=== PATIENT | female | born 1955 | race Caucasian/White ===

== ENCOUNTER → 2017-12-04 | Outpatient (CLI) | payer MEDICARE, MEDICAID ==
[~2017-12-04] MED LIST: ALBU8.5H IH; AMIT-106 PO; BUPR-126 PO; CHOL5POW MC; ELUX100T PO; ESTR-33 PO; IOPAMIDOL 76% 75 ML INFUS BTL 75 ML ONE; LEVO-85 PO; LEVO5TAB28 PO; METR-1 PO; MOMR ENA; MONT10TA PO; NS 0.9% 20 ML SDV 60 ML ONE; PREN-127 PO
[2017-12-04 08:26] LABS: PLATELET COUNT, AUTOMATED 298 K/uL (150-450)
--- NOTE | 2017-12-04 10:55 | RADIOLOGY IMAGING REPORT ---
FACILITY: [facility] - [place] PATIENT NAME: Sirisha Delgado : 1955 MR: [id number] V: [id number] EXAM DATE: ORDERING PHYSICIAN: ROGER MORIN TECHNOLOGIST: Location: [facility] Patient: Sirisha Delgado : 1955 Visit/Account:[id number] Date of Sevice: 12/04/2017 ABDOMEN/PELVIS W/WO CONTRAST HISTORY: History of appendiceal abscess TECHNIQUE: Axial images acquired through the abdomen/pelvis both with and without IV contrast.. Jase nal and sagittal reformatting also performed. Dose Lowering Technique One of the following dose optimization techniques was utilized in the performance of this exam: Autom ated exposure control; adjustment of the mA and/or kV according to the patient's size; or use of an i terative reconstruction technique. Specific details can be referenced in the facility's radiology C T exam operational policy. CONTRAST: 75 mL Isovue-370 COMPARISON: October 20, 2017 FINDINGS: Visualized lung bases: Negative. Hepatobiliary: Postsurgical changes from a cholecystectomy. Several small subcentimeter hypodensiti es in the liver are too small to characterize although remain unchanged Spleen: Negative. Adrenals: Negative. Pancreas: Negative. Kidneys ureters and bladder: Negative. Genitalia: Hysterectomy GI: The patient is status post appendectomy. There is no evidence of bowel wall thickening or bowel obstruction. Vessels/spaces/nodes: The previously noted percutaneous drain in the right lower quadrant has been r emoved. No abnormal collections are identified within the abdomen or pelvis. Bones/soft tissues: No aggressive appearing bone lesions are seen there moderate spondylotic changes L5-S1 and L1-2. Mild generative changes of the hip joints Additional findings: None pertinent. IMPRESSION: Patient status post appendectomy. No abnormal collections are identified within the abdomen or pelvi s Additional chronic findings as described above Report Dictated By: Katie German MD at 12/04/2017 10:42 AM Report E-Signed By: Katie German MD at 12/04/2017 10:50 AM WSN:[id number]
== END ==
LOC: CT 07:06
PROVIDERS: ATTEND Surgery
DX: Z90.89 Acquired absence of other organs (principal); Z90.49 Acquired absence of other specified parts of digestive tract; Z90.710 Acquired absence of both cervix and uterus
CPT/HCPCS: 36415; 74178; 82565; 85025; J7050; Q9967

== ENCOUNTER 2017-12-20 10:23 | Emergency (ER) | payer MEDICARE, MEDICAID ==
[~2017-12-20] VITALS: Ht 180.3 cm; Wt 74.8 kg
[~2017-12-20 10:23] MED LIST changes: -IOPAMIDOL 76% 75 ML INFUS BTL 75 ML ONE; -NS 0.9% 20 ML SDV 60 ML ONE
--- NOTE | 2017-12-20 10:34 | ER Report ---
History and Physical Time Seen By MD: 10:34 HPI/ROS CHIEF COMPLAINT: Abdominal pain HISTORY OF PRESENT ILLNESS: 62-year-old female reports complex abdominal surgical history including abscess longtime antibiotics and washout for ruptured appendicitis by Dr. Shaan ramirez, also history of adhesions removed in 1979 tubal ligation and 80 for a right inguinal hernia repair in lupus total hysterectomy 2009 cholecystectomy in 2009 presents with right lower quadrant pain over the last 3 days worsening last meal was last night last bowel movement was normal for her and was diarrhea without blood or mucus, last CAT scan and lab draw was 2 weeks ago. She follows with Dr. Olvera in clinic.she rates the pain a 5 out of 10 is refusing pain medication. She feels queasy but does not feel like she is actually on to vomit and is refusing nausea medication at this time. REVIEW OF SYSTEMS: Constitutional: No fever, no chills. Eyes: No discharge. ENT: No sore throat. Cardiovascular: No chest pain, no palpitations. Respiratory: No cough, no shortness of breath. Gastrointestinal: Nausea without vomiting Genitourinary: No hematuria. Musculoskeletal: No back pain. Skin: No rashes. Neurological: No headache. Allergies: Coded Allergies: No Known Drug Allergies (Unverified , 12/20/17) Home Meds Reported Medications Montelukast Sodium (SINGULAIR) 10 Mg Tablet, 1 TAB PO HS, TAB 10/09/17 Eluxadoline (Viberzi) 100 Mg Tablet, 1 TAB PO BID 10/09/17 Vits W-Ca,Fe,Fa(<1MG) ( VITAMINS) 1 Each Tablet, 1 EACH PO HS, TAB 10/09/17 Albuterol Sulfate 90 Mcg/Act (PROAIR HFA 90 MCG/ACT) 8.5 Gm Hfa.aer.ad, 1-2 PUFF IH 3-4XD Y for SHORTNESS OF BREATH, INHALER 10/09/17 Mometasone Furoate (NASONEX) 17 Gm Essie, 17 GM ED HS, SPRAY 10/09/17 Estradiol (ESTRADIOL) 1 Mg Tablet, 1 MG PO HS 10/09/17 Cholestyramine (CHOLESTYRAMINE RESIN) 5 Gm Powder, 4 GM MC BID 10/09/17 Levocetirizine (XYZAL) 5 Mg Tab, 5 MG PO DAILY Y for ALLERGY SYMPTOMS, TAB 10/09/17 Bupropion Hcl (WELLBUTRIN SR) 150 Mg Tablet.er, 150 MG PO HS, TAB 10/09/17 Amitriptyline Hcl (AMITRIPTYLINE HCL) 25 Mg Tablet, 25 MG PO QHS, #5 TAB 10/09/17 Discontinued Reported Medications Metronidazole (FLAGYL) 500 Mg Tablet, 500 MG PO TID, #21 TAB 10/21/17 Discontinued Scripts Levofloxacin 500 Mg Tab (LEVAQUIN 500 MG TAB) 500 Mg Tablet, 500 MG PO QDAY, #7 TAB Prov:ROGER OLVERA MD 10/21/17 Hx Smoking: No Hx Alcohol Use: No Constitutional Vital Sign - Last 24 Hours 12/20/17 12/20/17 12/20/17 12/20/17 10:24 10:31 10:53 11:00 Temp 97.8 Pulse 83 84 Resp 16 B/P (MAP) 139/79 139/79 (99) 122/85 (97) Pulse Ox 95 94 O2 Delivery Room Air 12/20/17 12/20/17 12/20/17 12/20/17 11:23 11:30 12:00 12:05 Pulse 78 B/P (MAP) 127/88 (101) 133/82 (99) Pulse Ox 94 95 12/20/17 12/20/17 12/20/17 12/20/17 12:20 12:25 12:30 12:35 Pulse 70 73 67 69 B/P (MAP) 132/86 (101) Pulse Ox 95 96 96 98 Intake and Output 12/20/17 12/20/17 12/21/17 15:00 23:00 07:00 Intake Total 1000 ml Balance 1000 ml Physical Exam General Appearance: The patient is alert, has no immediate need for airway protection and no signs of toxicity. She appears in no acute distress Eyes: Pupils equal and round no pallor or injection. ENT, Mouth: Mucous membranes are moist. Respiratory: There are no retractions, lungs are clear to auscultation. Cardiovascular: Regular rate and rhythm. No murmurs gallops or rubs Gastrointestinal: Abdomen is soft and right lower quadrant is tender without rebound, no masses, bowel sounds low. Neurological: Normal gross exam Skin: Warm and dry, no rashes. Musculoskeletal: Neck is supple non tender. Extremities are nontender, nonswollen and have full range of motion. No edema DIFFERENTIAL DIAGNOSIS: After history and physical exam differential diagnosis was considered for recurrent abscess, adhesions, colitis, enteritis, mesenteric adenitis, appendix likely removed. Prior cholecystectomy hysterectomy and bilateral oophorectomy make these entities unlikely to continue to her specific pathology today. Chronic diarrhea may be related to gluten intolerance lactose intolerance although previous workups per her report were negative she reports she seen a GI specialist on multiple occasions will recommend GI follow-up if no surgical disease is identified today. Medical Decision Making Data Points Result Diagram: 12/20/17 1037 12/20/17 1037 Laboratory Hematology Test 12/20/17 10:37 Red Blood Count 5.03 M/uL (4.17-5.56) Mean Corpuscular Volume 95.8 fL (80.0-96.0) Mean Corpuscular Hemoglobin 31.5 pg (26.0-33.0) Mean Corpuscular Hemoglobin Concent 32.9 g/dL (32.0-36.0) Red Cell Distribution Width 13.6 % (11.5-14.5) Mean Platelet Volume 8.6 fL (7.2-11.1) Neutrophils (%) (Auto) 56.1 % (39.4-72.5) Lymphocytes (%) (Auto) 34.2 % (17.6-49.6) Monocytes (%) (Auto) 4.4 % (4.1-12.4) Eosinophils (%) (Auto) 3.9 % (0.4-6.7) Basophils (%) (Auto) 1.4 % (0.3-1.4) Nucleated RBC Relative Count (auto) 0.1 /100WBC Neutrophils # (Auto) 4.5 K/uL (2.0-7.4) Lymphocytes # (Auto) 2.8 K/uL (1.3-3.6) Monocytes # (Auto) 0.4 K/uL (0.3-1.0) Eosinophils # (Auto) 0.3 K/uL (0.0-0.5) Basophils # (Auto) 0.1 K/uL (0.0-0.1) Nucleated RBC Absolute Count (auto) 0.01 K/uL Urine Color Yellow Urine Clarity Cloudy Urine pH 5.0 pH (4.8-9.5) Urine Specific Johnson 1.009 Urine Protein Negative mg/dL (NEGATIVE) Urine Glucose (UA) Negative mg/dL (NEGATIVE) Urine Ketones Negative mg/dL (NEGATIVE) Urine Blood Negative (NEGATIVE) Urine Nitrite Negative (NEGATIVE) Urine Bilirubin Negative (NEGATIVE) Urine Urobilinogen Negative mg/dL (0.2-1.9) Urine Leukocyte Esterase Large (NEGATIVE) Urine RBC 24 /HPF (0-2/HPF) Urine WBC 22 /HPF (0-5/HPF) Urine Squamous Epithelial Cells Many /LPF (</=FEW) Urine Bacteria Few /HPF (NONE-FEW) Urine Mucus Few /HPF (NONE-FEW) Sodium Level 139 mmol/L (137-145) Potassium Level 4.1 mmol/L (3.5-5.0) Chloride Level 104 mmol/L (98-107) Carbon Dioxide Level 22 mmol/L (22-31) Blood Urea Nitrogen 13 mg/dl (7-18) Creatinine 0.90 mg/dl (0.52-1.04) Glomerular Filtration Rate Calc > 60.0 Random Glucose 88 mg/dl (75-110) Calcium Level 9.2 mg/dl (8.4-10.2) Total Bilirubin 0.4 mg/dl (0.2-1.3) Aspartate Amino Transf (AST/SGOT) 36 U/L (0-35) Alanine Aminotransferase (ALT/SGPT) 53 U/L (0-56) Alkaline Phosphatase 87 U/L (0-126) Total Protein 7.6 gm/dl (6.3-8.2) Albumin 4.2 g/dl (3.5-5.0) Lipase 182 U/L (23-300) Chemistry Test 12/20/17 10:37 White Blood Count 8.1 k/uL (4.5-11.0) Red Blood Count 5.03 M/uL (4.17-5.56) Hemoglobin 15.9 g/dL (12.0-16.0) Hematocrit 48.2 % (34.0-47.0) Mean Corpuscular Volume 95.8 fL (80.0-96.0) Mean Corpuscular Hemoglobin 31.5 pg (26.0-33.0) Mean Corpuscular Hemoglobin Concent 32.9 g/dL (32.0-36.0) Red Cell Distribution Width 13.6 % (11.5-14.5) Platelet Count 355 K/uL (150-450) Mean Platelet Volume 8.6 fL (7.2-11.1) Neutrophils (%) (Auto) 56.1 % (39.4-72.5) Lymphocytes (%) (Auto) 34.2 % (17.6-49.6) Monocytes (%) (Auto) 4.4 % (4.1-12.4) Eosinophils (%) (Auto) 3.9 % (0.4-6.7) Basophils (%) (Auto) 1.4 % (0.3-1.4) Nucleated RBC Relative Count (auto) 0.1 /100WBC Neutrophils # (Auto) 4.5 K/uL (2.0-7.4) Lymphocytes # (Auto) 2.8 K/uL (1.3-3.6) Monocytes # (Auto) 0.4 K/uL (0.3-1.0) Eosinophils # (Auto) 0.3 K/uL (0.0-0.5) Basophils # (Auto) 0.1 K/uL (0.0-0.1) Nucleated RBC Absolute Count (auto) 0.01 K/uL Urine Color Yellow Urine Clarity Cloudy Urine pH 5.0 pH (4.8-9.5) Urine Specific Johnson 1.009 Urine Protein Negative mg/dL (NEGATIVE) Urine Glucose (UA) Negative mg/dL (NEGATIVE) Urine Ketones Negative mg/dL (NEGATIVE) Urine Blood Negative (NEGATIVE) Urine Nitrite Negative (NEGATIVE) Urine Bilirubin Negative (NEGATIVE) Urine Urobilinogen Negative mg/dL (0.2-1.9) Urine Leukocyte Esterase Large (NEGATIVE) Urine RBC 24 /HPF (0-2/HPF) Urine WBC 22 /HPF (0-5/HPF) Urine Squamous Epithelial Cells Many /LPF (</=FEW) Urine Bacteria Few /HPF (NONE-FEW) Urine Mucus Few /HPF (NONE-FEW) Glomerular Filtration Rate Calc > 60.0 Calcium Level 9.2 mg/dl (8.4-10.2) Total Bilirubin 0.4 mg/dl (0.2-1.3) Aspartate Amino Transf (AST/SGOT) 36 U/L (0-35) Alanine Aminotransferase (ALT/SGPT) 53 U/L (0-56) Alkaline Phosphatase 87 U/L (0-126) Total Protein 7.6 gm/dl (6.3-8.2) Albumin 4.2 g/dl (3.5-5.0) Lipase 182 U/L (23-300) Urinalysis Test 12/20/17 10:37 Urine Color Yellow Urine Clarity Cloudy Urine pH 5.0 pH (4.8-9.5) Urine Specific Johnson 1.009 Urine Protein Negative mg/dL (NEGATIVE) Urine Glucose (UA) Negative mg/dL (NEGATIVE) Urine Ketones Negative mg/dL (NEGATIVE) Urine Blood Negative (NEGATIVE) Urine Nitrite Negative (NEGATIVE) Urine Bilirubin Negative (NEGATIVE) Urine Urobilinogen Negative mg/dL (0.2-1.9) Urine Leukocyte Esterase Large (NEGATIVE) Urine RBC 24 /HPF (0-2/HPF) Urine WBC 22 /HPF (0-5/HPF) Urine Squamous Epithelial Cells Many /LPF (</=FEW) Urine Bacteria Few /HPF (NONE-FEW) Urine Mucus Few /HPF (NONE-FEW) ED Course/Re-evaluation ED Course The plan of care was agreed upon prior to orders placed. Re-evaluation Doing fine no concerns or complaints all results were discussed at 12/20/2017 12:52:19 pm all questions answered and understood. Home care follow-up and reasons to return discussed. Patient's disclose she is on Viberzi [Eluxadoline] and will continue for pain. She would appreciate a prescription for Zofran Decision to Disposition Date: Dec 20, 2017 Decision to Disposition Time: 12:54 Depart Departure Latest Vital Signs Vital Signs Date Time Temp Pulse Resp B/P (MAP) Pulse Ox O2 Delivery O2 Flow Rate FiO2 12/20/17 12:35 69 98 12/20/17 12:30 132/86 (101) 12/20/17 10:24 97.8 16 Room Air Impression: Primary Impression: Abdominal pain, right lower quadrant Condition: Improved Disposition: HOME OR SELF-CARE New Scripts Ondansetron (ZOFRAN ODT) 4 Mg Tab.rapdis 4 MG PO Q6H for Nausea for 7 Days, #28 TAB.JAIME Prov: CHIDI ROMERO MD 12/20/17 Patient Instructions: Irritable Bowel Syndrome (ED) CHIDI ROMERO MD Dec 20, 2017 10:34
[2017-12-20] MEDS ORDERED: NS(*) 0.9% 1000 ML BAG 1,000 ML IV ONE (11:16)
[2017-12-20] MEDS ORDERED: DICYCLOMINE HCL 10 MG CAP PO ONE (11:20)
[2017-12-20] MEDS ORDERED: NS 0.9% 20 ML SDV 40 ML ONE (11:25)
[2017-12-20] MEDS ORDERED: IOPAMIDOL 76% 75 ML INFUS BTL 75 ML ONE (11:25)
[2017-12-20 11:32] LABS: PLATELET COUNT, AUTOMATED 355 K/uL (150-450)
--- NOTE | 2017-12-20 12:45 | RADIOLOGY IMAGING REPORT ---
FACILITY: [facility] PATIENT NAME: Sirisha Delgado : 1955 MR: [id number] V: [id number] EXAM DATE: ORDERING PHYSICIAN: CHIDI ROMERO TECHNOLOGIST: Location: [facility] Patient: Sirisha Delgado : 1955 Visit/Account:[id number] Date of Sevice: 12/20/2017 ABDOMEN/PELVIS WITH CONTRAST Additional pertinent History: Right lower quadrant pain TECHNIQUE: Spiral scan was through the abdomen and pelvis during injection of nonionic iodinated in travenous contrast. Contrast: 75 mL of IV Isovue 370. COMPARISON STUDIES: 12/04/2017 One of the following dose optimization techniques was utilized in the performance of this exam: Autom ated exposure control; adjustment of the mA and/or kV according to the patient's size; or use of an i terative reconstruction technique. Specific details can be referenced in the facility's radiology C T exam operational policy.. FINDINGS: Liver / biliary: Hypoattenuated lesions subcentimeter in size within the left lobe of the liver consi stent with cysts. Pancreas: negative Spleen: negative Adrenal glands: negative Kidneys / retroperitoneum: No renal stone or renal obstructive uropathy change. Slightly prominent ri ght extrarenal pelvis. Ureter mildly prominent down to the bladder with no obstructing process seen. Pelvic structures: Status post hysterectomy. Adnexal regions unremarkable. Bowel / peritoneum / mesenteries: No bowel inflammation. No colonic mass lesion. No appendix identifi ed. There are however, no pericolonic stranding or inflammation noted to suggest secondary signs of a ppendicitis. Vessels: negative Musculoskeletal / Body wall: DJD disc degenerative changes at the L5-S1 level. Lymph node assessment: negative Lower chest: negative IMPRESSION: 1. Negative CT scan of the abdomen/pelvis for acute pathology. Status post hysterectomy. Status post cholecystectomy. Report Dictated By: Rom Myers MD at 12/20/2017 12:26 PM Report E-Signed By: Rom Myers MD at 12/20/2017 12:40 PM WSN:[id number]
[2017-12-20] MEDS ORDERED: ONDA4TAB PO (12:55)
[2017-12-20 13:00] VITALS: BP 120/80
== END 2017-12-20 13:03 | disposition home or self-care (01) ==
LOC: ER 10:31
DX: R10.31 Right lower quadrant pain (principal)
CPT/HCPCS: 74177; 81001; 83690; 85025; 96360; 99284; A9270; J7030; J7050; Q9967; 82040; 82247; 82310; 82374; 82435; 82565; 82947; 84075; 84132; 84155; 84295; 84450; 84460; 84520

== ENCOUNTER → 2017-12-31 | Outpatient (REF) | payer MEDICARE, MEDICAID ==
[~2017-12-31] MED LIST changes: +ONDA4TAB PO
== END ==
LOC: ZZSENDIN 17:22 → EDSTATUS 17:23
PROVIDERS: ATTEND Urology
DX: R31.1 Benign essential microscopic hematuria (principal); N39.0 Urinary tract infection, site not specified
CPT/HCPCS: 81001; 87088

== ENCOUNTER 2018-01-13 00:25 | Day surgery (SDC) | payer MEDICARE, MEDICAID ==
--- NOTE | 2017-12-17 16:53 | HISTORY AND PHYSICAL ---
DATE OF ADMISSION: January 13, 2018 CHIEF COMPLAINT Interval appendectomy. HISTORY OF PRESENT ILLNESS This is a 52-year-old female who had a perforated appendix with abscess on October 14, 2017. This was treated with drainage of the abscess. She has subsequently recovered and is now admitted for an interval appendectomy. ALLERGIES She has no known allergies. CURRENT MEDICATIONS 1. Amitriptyline 25 mg at bedtime. 2. Cholestyramine. 3. Estradiol. 4. Mometasone. 5. Montelukast 10 mg at bedtime. 6. vitamins. 7. ProAir. 8. Wellbutrin. 9. Xyzal 5 mg. 10. Viberzi 100 mg twice a day. PAST MEDICAL HISTORY AND OPERATIONS She had bilateral knee scopes, bilateral tubal ligation, cholecystectomy, drainage of appendiceal abscess, lysis of adhesions, neck operation, right inguinal hernia repair, rotator cuff repair, tonsillectomy, and total hysterectomy. PHYSICAL EXAMINATION GENERAL: A 62-year-old female in no acute distress. LUNGS: Clear. HEART: Regular rhythm. ABDOMEN: Soft, nontender. No palpable masses. IMPRESSION History of perforated appendix. PLAN We will do an interval appendectomy. We discussed the procedure, complications , and recovery time. She seems to understand and wishes to proceed. BOB
[~2018-01-13] VITALS: Ht 180.3 cm; Wt 78.5 kg
[~2018-01-13 00:25] MED LIST changes: +NITR-105 PO
[2018-01-13] MEDS ORDERED: LIDOCAINE MPF 1% 5 ML VIAL ONE (07:25)
[2018-01-13] MEDS ORDERED: fentaNYL CITR 100 MCG/2 ML AMP ONE ×3 (07:25→10:24)
[2018-01-13] MEDS ORDERED: ONDANSETRON 4 MG/2 ML VIAL ONE (07:25)
[2018-01-13] MEDS ORDERED: PROPOFOL EMUL(*) 10MG/ML 20 ML 20 ML ONE (07:25)
[2018-01-13] MEDS ORDERED: DEXAMETHASONE SOD 4 MG/ML VIAL ONE (07:25)
[2018-01-13] MEDS ORDERED: FAMOTIDINE(*) 20MG/50ML PREMIX 50 ML IVPB ONE (07:49)
[2018-01-13] MEDS ORDERED: SUGAMMADEX SOD 200 MG/2 ML SDV ONE (08:07)
[2018-01-13 08:18] VITALS: BP 126/82
[2018-01-13] MEDS ORDERED: ROPIVACAINE 0.2% 20 ML VIAL ONE (08:27)
[2018-01-13] MEDS ORDERED: MIDAZOLAM 2 MG/2 ML VIAL IVP ONE (08:30)
[2018-01-13] MEDS ORDERED: LIDOCAINE/SOD BICARB 8.4% SYR ID ONE (08:30)
[2018-01-13] MEDS ORDERED: cefOXitin/DEX(*) 2GM/50ML PREM 50 ML IVPB ONE (08:30)
[2018-01-13] MEDS ORDERED: NORMOSOL R SOLN(*) 1000 ML BAG 1,000 ML IV PRN (08:30)
[2018-01-13] MEDS ORDERED: FAMOTIDINE 20 MG TAB PO ONE (08:30)
[2018-01-13] MEDS ORDERED: DEXAMETHASONE SOD PHOS 10MG/ML ONE (08:33)
--- NOTE | 2018-01-13 08:35 | Post Operative Progress Note ---
Post Operative Progress Note Date: Jan 13, 2018 Time: 10:15 Surgeon: emeli Anesthesia: armando Pre-Op Diagnosis: interval appendectomy Post-Op Diagnosis: same Procedure(s): laparoscopic appendectomy ROGER MORIN MD Jan 13, 2018 08:34
[2018-01-13] MEDS ORDERED: KET10 PO (08:36)
[2018-01-13] MEDS ORDERED: HYDR-4309 PO (08:36)
--- NOTE | 2018-01-13 08:39 | Short(Outpt) Discharge Summary ---
Discharge Summary Reason for Hosp/Final Diag: (1) History of appendectomy Hospital Course & Plan: laparoscopic appendectomy Departure Discharge to: Home Discharge Instructions Home Meds Active Scripts Hydrocodone Bit/Acetaminophen (NORCO 5-325 TABLET) 1 Each Tablet, 1 EACH PO Q4H Y for PAIN, #30 TAB Prov:ROGER MORIN MD 01/13/18 Ketorolac Tromethamine (KETOROLAC TROMETHAMINE) 10 Mg Tab, 10 MG PO Q6H, #20 TAB Prov:ROGER MORIN MD 01/13/18 Ondansetron (ZOFRAN ODT) 4 Mg Tab.rapdis, 4 MG PO Q6H for Nausea for 7 Days, # 28 TAB.JAIME Prov:CHIDI ROMERO MD 12/20/17 Reported Medications Nitrofurantoin Monohyd/M-Cryst (MACROBID 100 MG CAPSULE) 100 Mg Capsule, 100 MG PO QDAY, CAPSULE 01/07/18 Montelukast Sodium (SINGULAIR) 10 Mg Tablet, 1 TAB PO HS, TAB 10/09/17 Eluxadoline (Viberzi) 100 Mg Tablet, 1 TAB PO BID 10/09/17 Vits W-Ca,Fe,Fa(<1MG) ( VITAMINS) 1 Each Tablet, 1 EACH PO HS, TAB 10/09/17 Albuterol Sulfate 90 Mcg/Act (PROAIR HFA 90 MCG/ACT) 8.5 Gm Hfa.aer.ad, 1-2 PUFF IH 3-4XD Y for SHORTNESS OF BREATH, INHALER 10/09/17 Mometasone Furoate (NASONEX) 17 Gm [place], 17 GM ED HS, SPRAY 10/09/17 Estradiol (ESTRADIOL) 1 Mg Tablet, 1 MG PO HS 10/09/17 Cholestyramine (CHOLESTYRAMINE RESIN) 5 Gm Powder, 4 GM MC BID 10/09/17 Levocetirizine (XYZAL) 5 Mg Tab, 5 MG PO DAILY Y for ALLERGY SYMPTOMS, TAB 10/09/17 Bupropion Hcl (WELLBUTRIN SR) 150 Mg Tablet.er, 150 MG PO HS, TAB 10/09/17 Amitriptyline Hcl (AMITRIPTYLINE HCL) 25 Mg Tablet, 25 MG PO QHS, #5 TAB 10/09/17 Diet: Regular Activity: As Tolerated Special Instructions: ice to incision for 48 hours remove bandage and shower to see me in one week, call [phone] for ROGER Robles MD Jan 13, 2018 08:39
[2018-01-13] MEDS ORDERED: KETOROLAC 30 MG/ML VIAL ONE (09:00)
[2018-01-13] MEDS ORDERED: ROCURONIUM BROM 10 MG/ML 10 ML ONE (09:00)
[2018-01-13] MEDS ORDERED: KETAMINE HCL 200 MG/20 ML MDV ONE (09:00)
[2018-01-13 11:17] VITALS: BP 125/70
[2018-01-13 11:37] VITALS: BP 101/84
[2018-01-13 11:39] VITALS: BP 132/80
[2018-01-13 11:41] VITALS: BP 109/87
--- NOTE | 2018-01-13 16:58 | OPERATIVE REPORT 1 ---
EVENT DATE: January 13, 2018 SURGEON: Geovany Olvera MD ANESTHESIOLOGIST: Rehan Chadwick MD ANESTHESIA: General. PREOPERATIVE DIAGNOSIS Interval appendectomy. POSTOPERATIVE DIAGNOSIS Interval appendectomy. PROCEDURE PERFORMED Laparoscopic appendectomy. DESCRIPTION OF PROCEDURE The patient was placed in the supine position and given general anesthetic. Her abdomen was prepped and draped in a sterile fashion. A small incision was made above the umbilicus. A Veress needle was inserted. The abdomen was insufflated with CO2. A 5 mm port was placed under direct vision. She had a few omental adhesions to the midline scar. We were easily able to place a 5 mm port in the left lower quadrant and a 10 mm port in the suprapubic region. These adhesions were taken down with the Harmonic scalpel. We went to the right lower quadrant. She had some filmy adhesions and adhesive bands. These were taken down with the Harmonic scalpel. The cecum was stuck to the anterior abdominal wall. This was taken down with blunt dissection and the Harmonic scalpel to get us some mobility of the cecum so we could visualize the area. She had some adhesions to the terminal ileum to the pelvic sidewall. These were taken down with blunt dissection and the Harmonic scalpel. We were then able to see the appendiceal stump. It was short. We dissected it out. As we were working, the fat pad on top of the terminal ileum was fused with the distal appendix. This was , and as we were doing the dissection, we came across the appendix and divided it. We then took the distal portion out with the Harmonic scalpel and removed it from the field. We then were able to dissect out the stump of the appendix. This was not very long. We were able to get 0 chromic Endoloop around it. During the previous dissection, we had another small portion that we put Endoloop around. Ultimately, we had 0 chromic Endoloop around the appendiceal stump. The previous Endoloop was placed around some of the mesentery to the appendix, and hemostasis was obtained. At this point, we suctioned, irrigated, and inspected for bleeding. We had perfect hemostasis. No evidence of any injury to the small bowel or the cecum. We had the appendiceal stump ligated, and the procedure was then terminated. The ports were removed under direct vision. No bleeding was noted. The skin was closed with interrupted 4-0 Maxon. Steri-Strips and an Airstrip were placed. MTDD
== END 2018-01-13 11:15 | disposition home or self-care (01) ==
LOC: OR 00:25
PROVIDERS: ATTEND Surgery
DX: K35.2 Acute appendicitis with generalized peritonitis (principal)
CPT/HCPCS: 44970; 88304; J0694; J1100; J1885; J2001; J2250; J2405; J2704; J2795; J3010; J3490

== ENCOUNTER → 2018-03-16 | Outpatient (CLI) | payer MEDICARE, MEDICAID ==
[~2018-03-16] MED LIST changes: +HYDR-4309 PO; +KET10 PO; +METR45CR10 TP
--- NOTE | 2018-03-17 10:29 | RADIOLOGY IMAGING REPORT ---
FACILITY: PATIENT NAME: ODESSA DOLAN : [id number] MR: [id number] V: [id number] EXAM DATE: ORDERING PHYSICIAN: SHRUTI WILKINS TECHNOLOGIST: Yumiko Figueroa PROCEDURE:BILATERAL DIGITAL SCREENING MAMMOGRAM WITH CAD ASSISTED INTERPRETATION & 3D TOMOSYNTHESIS COMPARISON:Prior mammograms 02/17/17, 08/19/16, 12/29/15, 12/21/15 INDICATIONS:screening FINDINGS: Moderately heterogeneous fibroglandular tissue is again seen throughout the breasts. The parenchymal pattern has remained stable allowing for difference in mammographic technique & patient positioning. There is no evidence of malignant appearing mass, malignant appearing calcifications or other secondary sign of malignancy in either breast. The stereotactic biopsy clip is again seen in the upper outer quadrant of the Left breast. DIAGNOSTIC CATEGORY 2--BENIGN FINDING. RECOMMENDATIONS: ROUTINE MAMMOGRAM AND CLINICAL EVALUATION. IMPRESSION: BIRADS 2: Benign finding No significant abnormality is seen. Dictated by: Katie German M.D. on 03/16/2018 at 17:05 Transcribed by: ARISTEO on 03/17/2018 at 7:57 Approved by: Katie German M.D. on 03/17/2018 at 10:27 [facility]
== END ==
LOC: MAMO 02:56
PROVIDERS: ATTEND Family Medicine
DX: Z12.31 Encounter for screening mammogram for malignant neoplasm of breast (principal)
CPT/HCPCS: 77063; 77067

== ENCOUNTER → 2018-05-26 | Outpatient (CLI) | payer MEDICARE, MEDICAID | LOC: LAB 09:59 | PROVIDERS: ATTEND Surgery | DX: D17.0 Benign lipomatous neoplasm of skin and subcutaneous tissue of head, face and neck (principal) | CPT/HCPCS: 88305 ==

== ENCOUNTER → 2018-09-08 | Outpatient (CLI) | payer MEDICARE, MEDICAID ==
[~2018-09-08] MED LIST changes: -HYDR-4309 PO; +HYDR-653 PO
--- NOTE | 2018-09-08 12:16 | RADIOLOGY IMAGING REPORT ---
FACILITY: [facility] [place] PATIENT NAME: Sirisha Delgado : 1955 MR: [id number] V: [id number] EXAM DATE: ORDERING PHYSICIAN: LUIS SIDDIQUI TECHNOLOGIST: Location: [facility] [place] Patient: Sirisha Delgado : 1955 Visit/Account:[id number] Date of Sevice: 09/08/2018 Examination: MR brain without contrast History: Double vision Comparison: None Technique: Multiplane MR imaging was performed through the brain without contrast. Findings: Diffusion: None Ventricles: Normal Midline shift: None Extraaxial fluid: None. Midline craniocervical structures: Normal Parenchyma: Less than five scattered punctate white matter high signal foci, within normal limits for age. Vascular flow voids: Normal Orbits and paranasal sinuses: Normal Impression: 1. No acute intracranial abnormality. 2. Normal for age brain MR. Report Dictated By: August Fuller MD at 09/08/2018 12:09 PM Report E-Signed By: August Fuller MD at 09/08/2018 12:12 PM WSN:[id number]
== END ==
LOC: MRI 01:14
PROVIDERS: ATTEND Psychiatry & Neurology Neurology
DX: H53.2 Diplopia (principal); H54.7 Unspecified visual loss
CPT/HCPCS: 70551

== ENCOUNTER → 2018-12-15 | Outpatient (REF) | payer MEDICARE, MEDICAID ==
[~2018-12-15] MED LIST changes: +ALOS1TAB PO
== END ==
LOC: ZZSENDIN 17:12
PROVIDERS: ATTEND Urology
DX: N39.0 Urinary tract infection, site not specified (principal); R82.79 Other abnormal findings on microbiological examination of urine
CPT/HCPCS: 81001; 87088

== ENCOUNTER 2018-12-24 01:56 | Day surgery (SDC) | payer MEDICARE, MEDICAID ==
[~2018-12-24] VITALS: Ht 180.3 cm; Wt 77.1 kg
[2018-12-24 06:30] VITALS: BP 133/79
[2018-12-24] MEDS ORDERED: LIDOCAINE/SOD BICARB 8.4% SYR ID ONE (06:45)
[2018-12-24] MEDS ORDERED: NORMOSOL R SOLN(*) 1000 ML BAG 1,000 ML IV PRN (06:45)
[2018-12-24] MEDS ORDERED: PROPOFOL EMUL(*) 10MG/ML 20 ML 40 ML ONE (07:15)
[2018-12-24] MEDS ORDERED: PROPOFOL EMUL(*) 10MG/ML 20 ML 20 ML ONE (07:55)
[2018-12-24 08:12] VITALS: BP 121/79
[2018-12-24 08:14] VITALS: BP 112/80
--- NOTE | 2018-12-24 08:15 | NUR ---
RN BEDSIDE. PT. REPORTS ABD CRAMPS. GIVEN A WARM BLANKET TO PLACE ON ABD. PT. GIVEN DIET SODA PRE REQUEST. ASKING IF SHE CAN TAKE HOME MEDS. TOLD PT.NEED TO CONSULT WITH ANESTHESIA.
--- NOTE | 2018-12-24 08:25 | NUR ---
RN REMAINS AT BEDSIDE. PAIN REASSESSED. REMAINS 02/17. STATES TOLERABLE.
--- NOTE | 2018-12-24 08:29 | NUR ---
BROUGHT TO BEDSIDE.
--- NOTE | 2018-12-24 08:35 | NUR ---
PT. GIVEN REFILL ON DRINK. STATES THAT SHE HAS TO USE THE RESTROOM. STATES OKAY TO DO ORTHOSTATIC VITALS. 0840- PT. REPORTS UNABLE TO COMPLETE ORTHOSTATICS DUE TO URGENT NEED TO USE THE RESTROOM. DENIES DIZZINESS OR FEELING LIGHTHEADED. RN ESCORTED PT. TO RESTROOM.
[2018-12-24 08:38] VITALS: BP 109/73
--- NOTE | 2018-12-24 08:45 | NUR ---
DR. WLIKINS AT BEDSIDE. SPEAKING WITH PT.
--- NOTE | 2018-12-24 09:00 | NUR ---
PT. REQUESTING DISCHARGE. INSTRUCTIONS REVIEWED.
== END 2018-12-24 09:04 | disposition home or self-care (01) ==
LOC: OR 01:56
PROVIDERS: ATTEND Family Medicine
DX: Z12.11 Encounter for screening for malignant neoplasm of colon (principal); K58.0 Irritable bowel syndrome with diarrhea; D12.6 Benign neoplasm of colon, unspecified
CPT/HCPCS: 00811; 45380; 88305; J2704

== ENCOUNTER → 2018-12-29 | Outpatient (REF) | payer MEDICARE, MEDICAID | LOC: ZZSENDIN 17:59 | PROVIDERS: ATTEND Urology | DX: N39.0 Urinary tract infection, site not specified (principal) | CPT/HCPCS: 81001; 87088 ==

== ENCOUNTER → 2019-06-22 | Outpatient (CLI) | payer MEDICARE, MEDICAID ==
--- NOTE | 2019-06-23 11:42 | RADIOLOGY IMAGING REPORT ---
FACILITY: [facility] PATIENT NAME: ODESSA DOLAN : [id number] MR: [id number] V: [id number] EXAM DATE: [id number] ORDERING PHYSICIAN: SHRUTI WILKINS TECHNOLOGIST: Yumiko Figueroa PROCEDURE: BILATERAL DIGITAL SCREENING MAMMOGRAM WITH CAD ASSISTED INTERPRETATION & 3D TOMOSYNTHESIS REASON FOR STUDY: Screening. FAMILY HISTORY OF BREAST CANCER: Paternal grandmother. BREAST PROCEDURES/TREATMENTS: Benign Stereotactic biopsy of the Left breast. COMPARISON: 03/16/18, 02/17/17, 08/19/16, 12/29/15, 12/21/15. VIEWS OBTAINED: Bilateral 2D & 3D full field CC & MLO projections. BREAST DENSITY: The breasts are heterogeneously dense which can obscure small masses. MAMMOGRAM FINDINGS: There is a Stereotactic biopsy clip in the upper outer quadrant of the Left breast in the middle depth. The parenchymal pattern has remained stable allowing for difference in mammographic technique & patient positioning. IMPRESSION: BIRADS 2: Benign finding. DIAGNOSTIC CATEGORY 2--BENIGN FINDING. RECOMMENDATIONS: ROUTINE MAMMOGRAM AND CLINICAL EVALUATION. Dictated by: Katie German M.D. on 06/22/2019 at 16:26 Transcribed by: ARISTEO on 06/23/2019 at 10:34 Approved by: Katie German M.D. on 06/23/2019 at 11:37 [facility]
== END ==
LOC: MAMO 04-29 00:40
PROVIDERS: ATTEND Family Medicine
DX: Z12.31 Encounter for screening mammogram for malignant neoplasm of breast (principal)
CPT/HCPCS: 77063; 77067